=== PATIENT | female | born 1990 | race African-American/Black ===

== ENCOUNTER 2023-01-20 06:10 | Emergency (ER) | payer OTHER | END 2023-01-20 07:10 | disposition home or self-care (01) | LOC: NAV ERS 06:10 | DX: H10.9 Unspecified conjunctivitis (principal); N39.0 Urinary tract infection, site not specified; F17.210 Nicotine dependence, cigarettes, uncomplicated | CPT/HCPCS: 99282 ==

== ENCOUNTER 2023-05-02 18:11 | Emergency (ER) | payer MEDICARE, OTHER ==
[2023-05-02] MEDS ORDERED: HYDROcodone/Acetaminophen 10/325 mg Tablet ONE (19:27)
== END 2023-05-02 19:28 | disposition home or self-care (01) ==
LOC: NAV ERS 18:11
DX: K08.89 Other specified disorders of teeth and supporting structures (principal); F17.210 Nicotine dependence, cigarettes, uncomplicated
CPT/HCPCS: 99282

== ENCOUNTER 2024-12-28 08:53 | Emergency (ER) | payer OTHER | END 2024-12-28 10:20 | disposition home or self-care (01) | LOC: NAV ERS 08:53 | DX: M77.11 Lateral epicondylitis, right elbow (principal); F17.290 Nicotine dependence, other tobacco product, uncomplicated; Z79.899 Other long term (current) drug therapy | CPT/HCPCS: 99283 ==

== ENCOUNTER 2025-01-14 21:09 | Emergency (ER) | payer OTHER | END 2025-01-15 00:47 | disposition home or self-care (01) | LOC: NAV ERS 21:09 | DX: S16.1XXA Strain of muscle, fascia and tendon at neck level, initial encounter (principal); S70.01XA Contusion of right hip, initial encounter; S09.90XA Unspecified injury of head, initial encounter; F17.290 Nicotine dependence, other tobacco product, uncomplicated; W01.198A Fall on same level from slipping, tripping and stumbling with subsequent striking against other object, initial encounter; Y93.89 Activity, other specified | CPT/HCPCS: 70450; 72125 ==